=== PATIENT | female | born 1990 | race Caucasian/White ===

== ENCOUNTER 2017-04-18 20:21 | Emergency (ER) | payer SELFPAY ==
[~2017-04-18] VITALS: Ht 172.7 cm; Wt 70.3 kg
[2017-04-18 20:22] VITALS: BP 116/79
--- NOTE | 2017-04-18 21:32 | PHYS DOC ---
General Chief Complaint: LACERATION/AVULSION Stated Complaint: LEFT HAND LAC Time Seen by MD: 20:22 Source: patient Exam Limitations: no limitations Problems: History of Present Illness Initial Comments Patient is a 19-year-old female complaining of left hand laceration. Patient works as a hairdresser, she states that approximately 1500 today while working she accidentally caught a portion of her left index finger in her alfonzo. She states pain has been controlled however she has applied multiple Band-Aids and the finger has continued to bleed. Her tetanus status is up-to- date, she has continued to work throughout the day while the finger persistently bled. On ED arrival after the dressing has been removed there is slight oozing from what appears to be more of a skin avulsion that an actual laceration. RN has soaked the wound in Betasept and the patient is applying pressure and elevating the finger. Onset: this afternoon Severity: mild Pain/Injury Location: left 2nd finger Method of Injury: incised Modifying Factors: improves with other Allergies: Coded Allergies: azithromycin (Verified Allergy, Intermediate, 04/18/17) Past Medical History Medical History: no pertinent history Surgical History: noncontributory Social History Smoker: non-smoker Alcohol: none Drugs: none Review of Systems Constitutional: denies chills, denies fever Respiratory: denies cough, denies shortness of breath Cardiovascular: denies chest pain, denies palpitations Gastrointestinal: denies nausea, denies vomiting Musculoskeletal: denies back pain, denies joint pain, denies muscle pain, denies neck pain Skin: see HPI Physical Exam General Appearance: WD/WN, no apparent distress Neck: full range of motion, supple Cardiovascular/Respiratory: normal peripheral pulses, no respiratory distress Hand: normal ROM (at the lateral aspect distal phalanx of the left second finger there is a 1 cm very superficial skin avulsion, there is a very thin layer of missing tissue approximately 2 mm in width running axially along the lateral edge of the phalanx. No tendon or nailbed involvement, no sensory or range of motion deficit or active bleeding.) Neurologic/Tendon: normal sensation, normal motor functions, normal tendon functions, responds to pain, no evidence tendon injury Psychiatric: alert, oriented x 3 Skin: normal color, warm/dry (left index finger avulsion as above) Orders, Labs, Meds I discussed wound care with the patient. She is leaving for vacation tomorrow and concerned about rebleeding. There are no wound edges to repair with sutures or royal, I did discuss tissue adhesive application simply to prevent infection or rebleeding. Patient is agreeable and requests this intervention. I applied a thin layer of tissue adhesive no complications and a sterile dressing was applied by the RN. Wound care instructions and further treatment were discussed verbally and provided in the departure instructions as below. Departure Time of Disposition: 21:31 Disposition: 01 HOME, SELF-CARE Diagnosis: Skin avulsion left 2nd finger Condition: GOOD Patient Instructions: Finger Avulsion, Tissue Adhesive Wound Care, [id number] Additional Instructions: Please review the patient education materials given by ED staff. [id number] Tylenol and ibuprofen as needed. Keep wound covered with sterile dressing until completely healed. Keep wound dry for 48 hours, after 48 hours wash briefly with soap and warm water, blot dry. Change dressing after each wash. Follow-up with your doctor in 5-7 days if not better. Return to ED with new or changing symptoms. JAKE SMITH DO Apr 18, 2017 21:32
== END 2017-04-18 21:42 | disposition home or self-care (01) ==
LOC: ER 20:21
DX: S61.211A Laceration without foreign body of left index finger without damage to nail, initial encounter (principal); Z88.1 Allergy status to other antibiotic agents; W23.0XXA Caught, crushed, jammed, or pinched between moving objects, initial encounter; Y93.89 Activity, other specified; Y99.8 Other external cause status; Y92.89 Other specified places as the place of occurrence of the external cause
CPT/HCPCS: 12001; 99283-25